=== PATIENT | female | born 1975 | race Caucasian/White ===

== ENCOUNTER → 2016-06-13 | Outpatient (CLI) | payer OTHER ==
[~2016-06-13] MED LIST: CHOLTAB3 PO; EPP3/2 INJ; ESTER-C500 M2 OR; FERR28TA2 OR; FLAX100024; KRV28 PO; MULT-506 PO; PRED20TA2 PO
== END | disposition home or self-care (01) ==
LOC: C.PATHSPEC 17:30
PROVIDERS: ATTEND Plastic Surgery
DX: L72.11 Pilar cyst (principal)

== ENCOUNTER → 2016-07-11 | Outpatient (CLI) | payer OTHER | END | disposition home or self-care (01) | LOC: C.PATHSPEC 10:05 | PROVIDERS: ATTEND Plastic Surgery | DX: L72.11 Pilar cyst (principal) ==

== ENCOUNTER 2016-11-01 01:00 | Emergency (ER) | payer OTHER ==
[~2016-11-01] VITALS: Ht 157.5 cm; Wt 101.3 kg
[~2016-11-01 01:00] MED LIST changes: -EPP3/2 INJ; -PRED20TA2 PO
[2016-11-01 01:05] VITALS: TEMP 36.7; Ht 157.5 cm; Wt 101.3 kg
[2016-11-01] MEDS ORDERED: METHYLPREDNISOLONE 125 MG VIAL IV STA (01:19)
[2016-11-01] MEDS ORDERED: RANITIDINE HCL 50 MG/100 ML D5W IV STA (01:19)
[2016-11-01] MEDS ORDERED: PRED20TA2 PO (03:11)
[2016-11-01] MEDS ORDERED: EPP3/2 INJ (03:11)
[2016-11-01 03:29] VITALS: BP 160/95; PULSE 76; O2SAT 99
--- NOTE | 2016-11-01 04:12 | EMERGENCY ROOM VISIT NOTE ---
History First contact with patient: 01:11 Chief Complaint: FACIAL PAIN/INJURY Stated Complaint: CHIN SWELLING History of Present Illness The patient is a 41 year old female who presents to the Emergency Room with complaints of swelling to her chin that began spontaneously this evening. The patient states that she has a history of allergic reactions in the past, but has not started any new medication or have known exposure to an irritant. No new foods or liquids. The patient took Benadryl at home, and this evidently significantly improved her symptoms. She states that she does have some swelling of her right side lower lip. She does not have throat swelling, shortness of breath, chest pain, coughing, wheezing, or abdominal pain. She has an EpiPen but did not feel the need to use this. She rates her discomfort a 4/10. Review of Systems More than 10 systems were reviewed and otherwise negative with the exception of history of present illness. Past Medical/Surgical History No chronic medical disease Family History No pertinent family history Social History Smoking Status: Never Smoker Drug Use: none Marital Status: single Occupation Status: employed Current/Historical Medications Scheduled , 500 MG OR DAILY Epinephrine (Epipen 2-Forrest), 1 APPLN INJ DIRECTED Ergocalciferol (Vitamin D), 1,000 INTER.UNIT PO CQWK Ethinyl Estrad/Desogestrel (Kariva), 1 TAB PO DAILY Ferrous Sulfate (Iron), 28 MG OR DAILY Multivitamin (Multivitamin), 1 TAB PO DAILY Prednisone (Prednisone Tab), 0 PO DAILY Miscellaneous Medications Flaxseed (Linseed) (Flaxseed Oil) Allergies Uncoded Allergies: CEPHLASPORINS (Allergy, Intermediate, HIVES, 08/24/09) PENICILLIAN (Allergy, Unknown, 02/28/05) SULFA (Allergy, Unknown, 02/28/05) Physical Exam Vital Signs Date Time Temp Pulse Resp B/P (MAP) Pulse Ox O2 Delivery O2 Flow Rate FiO2 11/01/16 03:29 76 20 160/95 99 11/01/16 01:05 36.7 97 20 172/113 99 Room Air Pain Rating (0-10): 0 Physical Exam VITALS: Vitals are noted on the nurse's note and reviewed by myself. Vital signs stable. GENERAL: Well-developed, well-nourished, white female, who is in no acute distress and resting comfortably. Patient is cooperative with the examination. HEAD: Normocephalic atraumatic. EARS: External ear normal. External auditory canals clear, tympanic membranes pearly torrez without erythema or effusion bilaterally. EYES: Pupils equal round and reactive to light and accommodation. Conjunctivae without injection, sclerae without icterus. Extraocular movements intact. NOSE: Patent, turbinates without inflammation or discharge. MOUTH: Mucous membranes moist. Tonsils are not enlarged. Pharynx without erythema, blood, or exudate. Uvula midline. Airway patent. There is very subtle edema of the lateral right lower lip. There is very mild swelling of the chin without lesion or discoloration NECK: Supple without nuchal rigidity. No lymphadenopathy. No thyromegaly. Cervical spine is nontender. HEART: Regular rate and rhythm without murmurs gallops or rubs. LUNGS: Clear to auscultation bilaterally without wheezes, rales or rhonchi. No retractions or accessory muscle use. Medical Decision & Procedures Medications Administered Medications (Trade) Dose Ordered Sig/Wesley Route Start Time Stop Time Status Last Admin Dose Admin Methylprednisolone Sodium Succinate (Solu-Medrol IV) 125 mg NOW STAT IV 11/01/16 01:19 11/01/16 01:21 DC 11/01/16 01:32 125 MG Ranitidine HCl (zANTac IV) 50 mg NOW STAT IV 11/01/16 01:19 11/01/16 01:21 DC 11/01/16 01:33 50 MG ED Course Physical exam and history were performed. Nursing notes and EMR were reviewed. Patient appears to have some very slight swelling of her chin as well as her right lower lip laterally. This was evidently much worse earlier this evening, and has significant improved with Benadryl. IV access was established and the patient was given IV Solu-Medrol and IV Zantac here in the department. She was monitored in the ER for greater than 2 hours and did have some improvement of her symptoms. She and I had a lengthy discussion regarding options of care. Clinically her symptoms most correlate with an allergic reaction at this time, however I did recommend that she have close follow-up with her primary care physician. I will give her a course of prednisone and a refill on her EpiPen. She was invited back to the ER with any new, worsening, or concerning symptoms, and voiced understanding of this plan. The chart was completed utilizing [employer] Voice Recognition Software. Grammatical errors, random word insertions, pronoun errors, and incomplete sentences are an occasional consequence of this system due to software limitations, ambient noise, and hardware issues. Any formal questions or concerns about the content, text, or information contained within the body of this dictation should be directly addressed to the provider for clarification. . Medical Decision Differential diagnosis: Etiologies such as allergic reaction, anaphylaxis, urticaria, Watson-Brian syndrome, toxic epidermal necrolysis, erythema multiforme, cellulitis, as well as others were entertained. Impression Primary Impression: Allergic reaction Departure Information Dispostion Home / Self-Care Condition GOOD Prescriptions Epinephrine (EPIPEN 2-FORREST) 0.3 Mg Inj 1 APPLN INJ DIRECTED for ALLERGIC REACTION, #1 PKT Prov: Michael Varghese PA-C 11/01/16 Prednisone (Prednisone Tab) 20 Mg Tab 0 PO DAILY, #18 TAB 3 DAILY FOR 3 DAYS, THEN 2 DAILY FOR 3 DAYS, THEN 1 DAILY FOR 3 DAYS. Prov: Michael Varghese PA-C 11/01/16 Forms HOME CARE DOCUMENTATION FORM, IMPORTANT VISIT INFORMATION Patient Instructions My [facility] Additional Instructions You were seen and evaluated today on an emergency basis only. This is not a substitute for, or an effort to provide, complete comprehensive medical care. It is not possible to recognize and treat all injuries or illnesses in a single emergency department visit. For this reason it is recommended that you followup with your primary care physician in the next 12-36 hours for recheck of your condition. Continue [id number] Benadryl 50 mg every 6 hours as needed. Take prednisone as prescribed. You are welcome to return to the emergency department anytime with new, worsening, or concerning symptoms.
== END 2016-11-01 03:31 | disposition home or self-care (01) ==
LOC: C.EDB 01:02
DX: T78.40XA Allergy, unspecified, initial encounter (principal); X58.XXXA Exposure to other specified factors, initial encounter; Z79.899 Other long term (current) drug therapy